=== PATIENT | male | born 1985 | race Two or more races ===

== ENCOUNTER 2019-10-26 22:50 | Emergency (ER) | payer OTHER, SELFPAY ==
--- NOTE | ~2019-10-26 | XR_ITS ---
EXAMINATION: XR lumbar spine 2-3V DATE: 10/27/2019 01:02 INDICATION: Midline low back pain. TECHNIQUE: Anteroposterior and lateral views of the lumbar spine, and cone-down lateral view of the l umbosacral junction were obtained. COMPARISON: None. FINDINGS: 10 degrees lumbar dextroscoliosis. Straightening of the lumbar lordosis. Vertebral body hei ghts are normal. Minimal disc height loss at L4-L5. Sacrum and bilateral sacral iliac joints are norm al. Normal bowel gas pattern. Lung bases are clear. Heart size is normal. IMPRESSION: 1. Mild lumbar dextroscoliosis with minimal spondylosis at L4-L5. Reviewed, dictated and finalized at location A.
[2019-10-26 22:52] VITALS: BP 110/75; PULSE 81; RESP 16; TEMP 36.6; O2SAT 100
[2019-10-27] MEDS: MORPHINE SULFATE 4 MG/ML INJ IV PUSH (00:40)
--- NOTE | 2019-10-27 01:45 | ED.BACK ---
HPI - Back Pain/Injury General Chief Complaint: Back Pain/Injury Stated Complaint: back pain Time Seen by Provider: 10/27/19 00:14 History of Present Illness HPI Narrative: Patient is a 34-year-old male who presents the ER with back pain. Sudden onset pain at 7:30 AM yesterday when he was lifting a box that weighed 50 pounds. Pain radiates down the left leg. Worse with bending and moving. No numbness or tingling in the groin or inability to urinate/defecate. Has found no alleviating factors other than lying still. Does not think he has lower extremity numbness or tingling. Has not noticed any focal weakness in his leg or foot drop. Related Data Allergies Allergy/AdvReac Type Severity Reaction Status Date / Time Penicillins Allergy Fever Verified 10/27/19 00:06 Review of Systems Review of Systems: All systems reviewed & are unremarkable except as noted in HPI and below Constitutional: Constitutional: Denies chills, Denies fever(s) and Denies weakness Musculoskeletal: Musculoskeletal: Reports back pain, Denies arthralgias and Denies joint swelling Neurologic: Denies focal weakness and Denies numbness PMFSH Past Medical History Medical History (Updated 10/27/19 @ 03:47 by Ashwin Briceno MD) Pancreatitis Surgical History Surgical History (Updated 10/27/19 @ 03:40 by Ashwin Briceno MD) No pertinent past surgical history Social History Social History (Updated 10/27/19 @ 03:40 by Ashwin Briceno MD) Smoking status: Unknown if ever smoked Exam Narrative: Exam Narrative: GENERAL: Uncomfortable-appearing, well-nourished, and in no acute distress. HEAD: Normocephalic, atraumatic. CHEST: Clear to auscultation. No respiratory distress. HEART: Regular rate and rhythm. Normal peripheral pulses. EXTREMITIES: Strength exam of lower extremities limited due to pain however patient is moving himself in the bed and his pulled his knees up to a 90 degree angle at the knees and the hips into a position of comfort. He moves his toes and feet freely. : No perineal sensory loss to sharp touch. Rectal tone normal. SKIN: Warm, dry, no rash. NEURO: Sharp touch deficit circumferentially around the lower left leg beneath the knee and extending into the foot. There is also sharp touch decrease in the left lower extremity in the posterior thigh. These would indicate dermatomes L4-2 could be involved. Alert and oriented x3. Course Course Emergency Course: I have contacted Dr. Peralta with spine surgery at [facility]. She reports that patient could be transferred to their hospital for an MRI to speed up the process of evaluating him but that this is not a time critical diagnosis and they are currently on time critical diversion. She reports given his symptoms that he may also follow-up in the spine clinic if he wishes and he can contact them for close follow-up. I have also contacted [facility] and spoke with Dr. Prieto with the spine team there. He also does not recommend emergent transfer as this is not cauda equina given the history and exam. He would recommend follow-up in spine clinic as well would also recommend a steroid Dosepak to help with patient's discomfort. I discussed with the patient the options that been presented by both spine teams. He would prefer to go home and rest and attempt to contact our clinics in the morning. We will start him on mild narcotic pain medication at home and also start him on a steroid Dosepak. He has been educated extensively on signs and symptoms that should prompt return to an ER and that he would likely benefit from promptly going to a tertiary care center should he require return visit. Vital Signs Vital signs: Vital Signs Temperature 98 F 10/26/19 22:52 Pulse Rate 81 10/26/19 22:52 Respiratory Rate 16 10/26/19 22:52 Blood Pressure 110/75 10/26/19 22:52 Pulse Oximetry 100 10/26/19 22:52 Temperature 98 F 10/26/19 22:52 Pulse Rate 81 10/26/19 22:52 R
[2019-10-27 04:11] VITALS: BP 123/76; PULSE 54; RESP 15; O2SAT 100
== END 2019-10-27 04:25 | disposition home or self-care (01) ==
PROVIDERS: Emergency Provider Emergency Medicine
DX: M54.16 Radiculopathy, lumbar region (principal)
CPT/HCPCS: 72100; 96374; 96375; 99284; A9270; J1170; J2270

== ENCOUNTER 2021-10-05 11:59 | Emergency (ER) | payer OTHER, SELFPAY ==
--- NOTE | ~2021-10-05 | XR_ITS ---
EXAMINATION: XR foot LT 2V INDICATION: Left foot pain, initial encounter TECHNIQUE: Two views of the left foot are obtained. COMPARISON: None available FINDINGS: There is an acute, traumatic, mildly comminuted fracture in the proximal neck of the first metatarsal. Given history of injury with an ax, this likely represents an open fracture. No additiona l fracture is identified. The joint spaces are normal. IMPRESSION: 1. Comminuted fracture in the proximal neck of the first metatarsal, likely open. Reviewed, dictated and finalized at location A. IMPRESSION: 1. Comminuted fracture in the proximal neck of the first metatarsal, likely ope n.
[2021-10-05 12:10] VITALS: BP 117/84; PULSE 102; RESP 28; TEMP 37.2; O2SAT 97
[2021-10-05] MEDS: HYDROmorphone HCL INJ (*CRX) 1 MG/ML SYR IV PUSH ×2 (12:54→14:17)
[2021-10-05] MEDS: LIDO 1%/EPINEPHRINE 1:100,000 20 ML VIAL 4 ML INFILTRATE (12:55)
[2021-10-05] MEDS: metroNIDAZOLE 500 MG/ISO 100ML 500 MG/100 ML BAG 100 MG IVPB (12:55)
[2021-10-05 12:56] LABS: Basophils Percent Auto 0.3 % (0.2-1.2); Eosinophils Absolute Auto 0.2 K/mm3 (0-0.3); Eosinophils Percent Auto 2.1 % (0-4.4); Hematocrit 42.9 % (42.0-52.0); Hemoglobin 14.6 g/dL (14.0-18.0); Immature Granulocyte Absolute 0.03 K/mm3 (0.00-0.031); Immature Granulocyte Percent A 0.3 % (0-0.5); Lymphocytes Absolute Auto 2.33 K/mm3 (0.9-3.2); Lymphocytes Percent Auto 27.1 % (18.3-44.2); Mean Corpuscular Hemoglobin 29.9 pg (26-34); Mean Corpuscular Volume 87.9 fl (80-100); Mean Platelet Volume 9.1 fl (7.4-10.4); Monocytes Absolute Auto 0.7 K/mm3 (0.1-0.6); Neutrophils Absolute Auto 5.3 K/mm3 (1.3-6.7); Neutrophils Percent Auto 62.2 % (45.5-73.1); Platelet Count Result 248 k/mm3 (150-375); Red Blood Count 4.88 M/mm3 (4.6-6.20); Red Cell Distribution Width 12.5 % (11.5-14.5); White Blood Count 8.6 K/mm3 (4.5-10.0)
[2021-10-05] MEDS: ceFAZolin 2 GM/D5W 50 ML 2 GM/50 ML BAG IVPB (12:56)
[2021-10-05 13:05] LABS: Anion Gap 4 mmol/L (8-16); Blood Urea Nitrogen 6 mg/dL (9-20); Carbon Dioxide 29 mmol/L (22-30); Chloride 103 mmol/L (98-107); Estimated CRCL calculation 92 ml/min; Estimated Glomerular Filt Rate > 60; Glucose 96 mg/dL (65-110); Potassium 3.6 mmol/L (3.4-5.0); Sodium 136 mmol/L (137-145)
--- NOTE | 2021-10-05 13:35 | ED.GENADULT ---
HPI - General Adult General Chief complaint: Extremity Injury, Lower Stated complaint: Foot injury Time Seen by Provider: 10/05/21 12:10 History of Present Illness HPI narrative: Patient is a 36-year-old male who presents the ER with foot injury occurring just prior to arrival. Patient was chopping down a tree with an ax when he struck his left foot with the ax. Had sudden onset pain and has a large laceration. Tetanus shot updated 4 years ago. Endorses numbness of his left great toe. Cannot bear weight due to pain. No additional injury. Related Data Allergies Allergy/AdvReac Type Severity Reaction Status Date / Time Penicillins Allergy Mild Fever Verified 10/05/21 12:41 Review of Systems Review of Systems: All systems reviewed & are unremarkable except as noted in HPI and below Musculoskeletal: Comments: Foot pain and laceration left side Integumentary/Breasts: Skin/Breast: Denies erythema, Denies rash and Denies skin ulcer Comments: foot laceration Neurologic: Denies headache(s), Denies focal weakness and Reports numbness (left great toe) PMFSH Past Medical History Medical History Esophagitis Esophagitis determined by biopsy Inguinal hernia Surgical History Surgical History Hx of esophagogastroduodenoscopy Family History Family History Father , 76 yrs old Lung cancer Social History Social History (Updated 03/13/21 @ 08:57 by Alexandra Nick) Social History: Years smoked: 3 Smoking status: Current every day smoker Tobacco type: e-cigarettes/vaping Second hand tobacco smoke exposure: Yes Alcohol intake: current Alcohol use details: Occasionally Substance use: never Substance use type: does not use Gender identity (if verbalized by the patient): Male Sexual Orientation (if Verbalized by the Patient): Straight or Heterosexual Exam Narrative: GENERAL: Well-appearing, well-nourished, and in no acute distress. HEAD: Normocephalic, atraumatic. CHEST: Clear to auscultation. No respiratory distress. HEART: Regular rate and rhythm. Normal peripheral pulses. EXTREMITIES: Focused exam the left foot reveals a 4 cm x 1.75 cm gaping laceration to the dorsum of the foot. Foot is tender to palpation along medial aspect. There is decreased sharp touch over the great toe but the other toes are spared. No decreased sensation over the dorsum of the foot. Laceration has small amount of contaminant wound visualized in a bloodless plane. There does appear to be full laceration of small muscles of the foot. Patient did not tolerate exploration down to bone. SKIN: Warm, dry, no rash. Laceration as noted above. NEURO: Decreased sensation left great toe. Alert and oriented x3. PSYCH: Normal mood and affect. Course Course Emergency Course: Accepted by Dr. Guevara at [facility] ER. Pt has received Ancef 2g and Metronidazole 500mg. Also, dilaudid 2mg. Vital Signs Vital signs: Vital Signs Temperature 98.9 F 10/05/21 12:10 Pulse Rate 102 H 10/05/21 12:10 Respiratory Rate 28 H 10/05/21 12:10 Blood Pressure 117/84 10/05/21 12:10 Pulse Oximetry 97 10/05/21 12:10 Oxygen Delivery Room Air 10/05/21 12:10 Temperature 98.9 F 10/05/21 12:10 Pulse Rate 90 10/05/21 13:40 Respiratory Rate 16 10/05/21 13:40 Blood Pressure 136/90 10/05/21 13:40 Pulse Oximetry 98 10/05/21 13:40 Oxygen Delivery Room Air 10/05/21 12:10 Medical Decision Making Vital Signs Vital Signs: Vital Signs Temperature 98.9 F 10/05/21 12:10 Pulse Rate 102 H 10/05/21 12:10 Respiratory Rate 28 H 10/05/21 12:10 Blood Pressure 117/84 10/05/21 12:10 Pulse Oximetry 97 10/05/21 12:10 Oxygen Delivery Room Air 10/05/21 12:10 Temperature 98.9 F 10/05/21 12:10 Pulse Rate 90 10/05/21 13:
[2021-10-05 13:40] VITALS: BP 136/90; PULSE 90; RESP 16; O2SAT 98
[2021-10-05 14:25] VITALS: BP 144/76; PULSE 92; RESP 18; O2SAT 98
[2021-10-05 15:13] VITALS: BP 115/81; PULSE 82; RESP 16; O2SAT 97
== END 2021-10-05 15:13 | disposition short-term general hospital (02) ==
PROVIDERS: Emergency Provider Emergency Medicine; PCP Family Medicine
DX: S92.312B Displaced fracture of first metatarsal bone, left foot, initial encounter for open fracture (principal); K20.90 Esophagitis, unspecified without bleeding; F17.290 Nicotine dependence, other tobacco product, uncomplicated; W27.0XXA Contact with workbench tool, initial encounter
CPT/HCPCS: 36415; 73620; 80048; 85025; 96365; 96367; 96375; 96376; 99285; J0690; J1170

== ENCOUNTER 2021-12-24 17:35 | Emergency (ER) | payer OTHER, SELFPAY ==
[2021-12-24] VITALS (27 sets, daily range): BP systolic 99–145; BP diastolic 51–87; PULSE 80–115; RESP 11–31; TEMP 36.1; O2SAT 96–100
[2021-12-24 18:08] LABS: Basophils Absolute Auto 0.1 K/mm3 (0.0-0.1); Basophils Percent Auto 0.4 % (0.2-1.2); Eosinophils Percent Auto 0.1 % (0-4.4); Hematocrit 51.3 % (42.0-52.0); Hemoglobin 17.2 g/dL (14.0-18.0); Immature Granulocyte Absolute 0.08 K/mm3 (0.00-0.031); Immature Granulocyte Percent A 0.5 % (0-0.5); Lymphocytes Absolute Auto 2.17 K/mm3 (0.9-3.2); Lymphocytes Percent Auto 12.8 % (18.3-44.2); Mean Corpuscular HGB Conc 33.5 g/dl (32-36); Mean Corpuscular Hemoglobin 29.3 pg (26-34); Mean Corpuscular Volume 87.4 fl (80-100); Mean Platelet Volume 9.6 fl (7.4-10.4); Monocytes Absolute Auto 1.3 K/mm3 (0.1-0.6); Monocytes Percent Auto 7.6 % (2.6-8.5); Neutrophils Absolute Auto 13.3 K/mm3 (1.3-6.7); Neutrophils Percent Auto 78.6 % (45.5-73.1); Platelet Count Result 325 k/mm3 (150-375); Red Blood Count 5.87 M/mm3 (4.6-6.20); Red Cell Distribution Width 12.7 % (11.5-14.5); White Blood Count 16.9 K/mm3 (4.5-10.0)
[2021-12-24 18:18] LABS: Alanine Aminotransferase 21 U/L (6-50); Alkaline Phosphatase 131 U/L (38-126); Anion Gap 17 mmol/L (8-16); Aspartate Amino Transferase 40 U/L (17-59); Blood Urea Nitrogen 21 mg/dL (9-20); Calcium 10.1 mg/dL (8.4-10.2); Carbon Dioxide 26 mmol/L (22-30); Chloride 91 mmol/L (98-107); Estimated CRCL calculation 41 ml/min; Estimated Glomerular Filt Rate 36; Glucose 121 mg/dL (65-110); Potassium 4.5 mmol/L (3.4-5.0); Sodium 134 mmol/L (137-145)
[2021-12-24] MEDS: diphenhydrAMINE HCl INJ 50 MG/ML VIAL 25 MG IV PUSH (18:51)
[2021-12-24] MEDS: methylPREDNISolone SOD SUCC 125 MG VIAL IV PUSH (18:51)
[2021-12-24] MEDS: SODIUM CHLORIDE 0.9% IV 1,000 ML 999 ML IV CONT ×2 (18:51)
[2021-12-24] MEDS: ONDANSETRON INJ 4 MG/2 ML VIAL IV PUSH (18:51)
[2021-12-24] MEDS: FAMOTIDINE 20 MG/2 ML VIAL IV PUSH (18:52)
--- NOTE | 2021-12-24 18:56 | ED.NAVMDI ---
HPI - Nausea/Vomiting/Diarrhea General Chief complaint: Nausea/Vomiting/Diarrhea Stated complaint: N/V, stung by wasp Time Seen by Provider: 12/24/21 18:04 Source: patient Mode of arrival: ambulatory History of Present Illness HPI Narrative: 36-year-old male presents today with complaints of nausea vomiting that started a couple hours ago and muscle cramps. Patient states that he got stung by a couple wasps today give himself the EpiPen then went home and laid down. Patient denies taking any other medications at that time. Patient's significant other tried giving him Benadryl but he had been vomiting already. Patient denies shortness of breath, chest pain, difficulty swallowing at this time. Patient is currently having muscle spasms to legs and arms and chest intermittently. Related Data Allergies Allergy/AdvReac Type Severity Reaction Status Date / Time Penicillins Allergy Mild Fever Verified 10/24/21 10:23 Review of Systems Review of Systems: CONSTITUTIONAL: Denies fever, chills, or sweats. EYES: Denies visual changes, redness, or discharge. ENT: Denies rhinorrhea, congestion, sore throat, or otalgia. CARDIOVASCULAR: Denies chest pain, palpitations, or edema. RESPIRATORY: Denies cough or dyspnea. GASTROINTESTINAL: Denies abdominal pain, nausea, vomiting, or diarrhea. GENITOURINARY: Denies dysuria or hematuria. SKIN: Right arm with minimal swelling and erythema secondary to wasp sting. MUSCULOSKELETAL: Muscle spasms intermittently to legs, arms, chest. Denies back pain, joint pain, or myalgia. NEUROLOGIC: Denies headache, numbness, dizziness, or weakness. PSYCHIATRIC: Denies anxiety or depression. [facility] Past Medical History Medical History Esophagitis Esophagitis determined by biopsy Inguinal hernia Surgical History Surgical History Hx of esophagogastroduodenoscopy Family History Family History Father , 76 yrs old Lung cancer Social History Social History Social History: Years smoked: 3 Smoking status: Current every day smoker Tobacco type: e-cigarettes/vaping Second hand tobacco smoke exposure: Yes Alcohol intake: current Alcohol use details: Occasionally Substance use: never Substance use type: does not use Gender identity (if verbalized by the patient): Male Sexual Orientation (if Verbalized by the Patient): Straight or Heterosexual Exam Narrative: GENERAL: Well-appearing, well-nourished, and in moderate distress due to muscle cramps. HEAD: Normocephalic, atraumatic. EYES: PERRLA and EOMI. ENT: Nares clear, no rhinorrhea or epistaxis. Mucous membranes moist. Oropharynx without tonsillar hypertrophy exudate or other lesions. Bilateral TMs pearly mace nonbulging NECK: Supple. No adenopathy or masses. No carotid bruits or JVD CHEST: Clear to auscultation. No respiratory distress. No wheezes rales or rhonchi HEART: Tachycardia regular rhythm. No murmur heard. Normal peripheral pulses. ABDOMEN: Soft, nontender, nondistended, normal active bowel sounds. EXTREMITIES: Normal range of motion. No edema. Muscle spasms noted. SKIN: Warm, dry, no rash. NEURO: No focal deficits. Alert and oriented x3. PSYCH: Normal mood and affect. fidgeting Course Course Emergency Course: Patient with improvement after IV fluids and medications. Patient states he feels like his normal self. Reviewed labs with patient. Patient be discharged home push fluids, prednisone, Pepcid, Claritin. Patient aware to return with any new or worsening symptoms. Plan follow-up with primary for repeat labs if needed. Vital Signs Vital signs: Vital Signs Temperature 36.1 C L 12/24/21 17:44 Pulse Rate 115 H 12/24/21 17:44 Respiratory Rate 18 12/24/21 17:44 Blood Pressure
[2021-12-24 21:07] LABS: Creatine Kinase 597 U/L (55-170)
== END 2021-12-24 22:50 | disposition home or self-care (01) ==
PROVIDERS: Emergency Medicine; Emergency Provider Nurse Practitioner Family; PCP Family Medicine
DX: T63.461A Toxic effect of venom of wasps, accidental (unintentional), initial encounter (principal); R11.2 Nausea with vomiting, unspecified; K20.90 Esophagitis, unspecified without bleeding; F17.290 Nicotine dependence, other tobacco product, uncomplicated
CPT/HCPCS: 36415; 80053; 82550; 85025; 96361; 96374; 96375; 99284; J1200; J2405; J2930; J7030

== ENCOUNTER 2021-12-31 15:50 | Emergency (ER) | payer OTHER, SELFPAY ==
[2021-12-31 15:53] VITALS: BP 138/97; PULSE 113; RESP 20; TEMP 36.3; O2SAT 100
[2021-12-31 16:02] VITALS: BP 153/101; PULSE 105; RESP 21; O2SAT 100
[2021-12-31] MEDS: methylPREDNISolone SOD SUCC 125 MG VIAL IV PUSH (16:04)
[2021-12-31] MEDS: FAMOTIDINE 20 MG/2 ML VIAL IV PUSH (16:04)
[2021-12-31] MEDS: diphenhydrAMINE HCl INJ 50 MG/ML VIAL IV PUSH (16:04)
--- NOTE | 2021-12-31 16:08 | ED.ALLEREA ---
HPI - Allergic Reaction General Chief complaint: Allergic Reaction Stated complaint: allergic reaction Time Seen by Provider: 12/31/21 15:57 History of Present Illness HPI narrative: Pt stung by wasp in forearm. Pt has a history of sthroat swelling and trouble breathing with stings so gave himself shot with epipen and came to ER. Right now only feels pain at sting site. Related Data Allergies Allergy/AdvReac Type Severity Reaction Status Date / Time Penicillins Allergy Mild Fever Verified 12/30/21 16:27 Review of Systems Review of Systems: All systems reviewed & are unremarkable except as noted in HPI and below PMFSH Past Medical History Medical History Esophagitis Esophagitis determined by biopsy Inguinal hernia Surgical History Surgical History Hx of esophagogastroduodenoscopy Family History Family History Father , 76 yrs old Lung cancer Social History Social History (Updated 12/30/21 @ 16:28 by Felicia Lobato) Social History: Years smoked: 3 Smoking status: Current every day smoker Tobacco type: e-cigarettes/vaping Second hand tobacco smoke exposure: Yes Alcohol intake: current Alcohol use details: Occasionally Substance use: never Substance use type: does not use Gender identity (if verbalized by the patient): Male Sexual Orientation (if Verbalized by the Patient): Straight or Heterosexual Exam Const: General: healthy appearing and no acute distress Orientation/consciousness: patient oriented x3 Limitations: no limitations Eyes: Conjunctivae: conjunctivae normal Resp: Effort & Inspection: normal respiratory effort Auscultation: clear to auscultation bilaterally Cardio: Rate: regular rate Rhythm: regular rhythm GI: GI Palp: Yes Soft to palpation Auscultation: normal bowel sounds Skin: Other: small area of erythema around sting site in forearm Neuro: General: patient oriented x3, moves all extremities and no focal motor deficits Speech: normal speech Extrem: General: normal to inspection and no clubbing, cyanosis or edema Psych: Mental Status: mental status grossly normal Affect: normal affect Attitude: cooperative Course Vital Signs Vital signs: Vital Signs Temperature 97.3 F L 12/31/21 15:53 Pulse Rate 113 H 12/31/21 15:53 Respiratory Rate 20 12/31/21 15:53 Blood Pressure 138/97 H 12/31/21 15:53 Pulse Oximetry 100 12/31/21 15:53 Temperature 97.3 F L 12/31/21 15:53 Pulse Rate 90 12/31/21 17:06 Respiratory Rate 16 12/31/21 17:06 Blood Pressure 129/98 H 12/31/21 17:06 Pulse Oximetry 99 12/31/21 17:06 Discharge Plan Discharge Clinical Impression: Allergic reaction Patient Disposition: Home, Self-Care Condition: Improved Instructions: Antibiotic Form, Insect Bite or Sting (ED), Anaphylaxis (ED) Prescriptions: New prednisone 50 mg tablet 50 mg PO DAILY Qty: 5 0RF No Action gabapentin 600 mg tablet 600 mg PO TID Qty: 270 2RF lansoprazole [Prevacid] 30 mg capsule,delayed release(DR/EC) 30 mg PO DAILY Qty: 90 1RF famotidine [Pepcid] 20 mg tablet 20 mg PO DAILY Qty: 30 0RF loratadine [Claritin] 10 mg tablet 10 mg PO DAILY Qty: 30 0RF amitriptyline 25 mg tablet 50 mg .ROUTE .COMPLEX Qty: 180 2RF Rx Instructions: 50 mg; Take 2 tabs PO once a day for 90 days epinephrine [EpiPen] 0.3 mg/0.3 mL auto-injector 0.3 mg IM ONCE Qty: 1 0RF Rx Instructions: as a single dose; may repeat once Follow-up/Referrals: Roxanna Harvey MD [Primary Care Provider] -
[2021-12-31 17:06] VITALS: BP 129/98; PULSE 90; RESP 16; O2SAT 99
== END 2021-12-31 17:18 | disposition home or self-care (01) ==
PROVIDERS: Emergency Provider Emergency Medicine; PCP Family Medicine
DX: T63.461A Toxic effect of venom of wasps, accidental (unintentional), initial encounter (principal); R06.9 Unspecified abnormalities of breathing; K20.90 Esophagitis, unspecified without bleeding; F17.290 Nicotine dependence, other tobacco product, uncomplicated
CPT/HCPCS: 96374; 96375; 99284; J1200; J2930

== ENCOUNTER 2024-10-30 13:59 | Outpatient (CLI) | payer OTHER, SELFPAY ==
--- OUTSIDE RECORDS SUMMARY | 2024-10-30 14:25 | XMS_ITS | Encounter Summary ---
Author Organization [facility] Healthcare Address [address] [place] [address] Care Team Providers Care Director Of Academic Name Role Phone No, Physician Primary Care Provider [phone] Roxanna Harvey MD Primary Care Provider Encounter Details Date Type Department Care Team (Late st Contact Info) Description 11/15/2019 Telephone [facility] [place] [address] Nolvia Johns, [facility] [address] [facility] [address] [place] [address] Social History Tobacco Use Types Packs/Day Years Used Date Smoking Tobacco: Every Day Vaping Smokeless Tobacco: Never Sex and Gender Information Value Date Recorded Sex Assigned at Not on file Legal Sex Male 11:16 PM CDT Gender Identity Not on file Sexual Orientation Not on file documented as of this encounter Plan of Treatment Not on file documented as of this encounter Visit Diagnoses Not on filedocumented in this encounter Care Teams Director Of Academic Relationship Specialty Start Date End Date No, Physician PCP - General 10/27/19 10/04/21 Roxanna Harvey MD [address] [place] [address] PCP - General Family Medicine 10/05/21 documented as of this encounter
--- OUTSIDE RECORDS SUMMARY | 2024-10-30 14:25 | XMS_ITS | Referral Summary ---
Author Organization [address] Address [address] [place] [address] Care Team Providers Care Finishing Frame Runner Name Role Phone Roxanna Harvey MD Primary Care Provider Allergies Active Allergy Reactions Criticality Noted Date Comments Penicillins Rash Medium 11/14/2019 Medications gabapentin (NEURONTIN) 300 mg capsuleIndications :Neuropathic Pain Take 600mg in the AM, 300mg in the afternoon and 600mg at Bedtime. 150 capsule 1 02/16/20 20 Active ondansetron ODT (ZOFRAN-ODT) 4 mg disintegrating tabletIndications: nausea and vomiting Take 1 tablet (4 mg total) by mouth every 6 (six) hours as needed for nausea or vomiting 20 tablet 10/07/19 22 Active Additional Information Patient not taking.Reported on 02/09/2022 Active Problems Problem Noted Date Diagnosed Date Open displaced fracture of f irst metatarsal bone of left foot 10/05/2021 Overview (10/05/2021): Added automatically from request for surgery [id number] Foot fracture, left, open, initial encounter 08/2021 DDD (degenerative disc disease), lumbar 02/16/20 20 Disc displacement, lumbar 02/16/2020 Chronic pain of right inguinal region 04/01/2017 Social History Tobacco Use Types Packs/Day Years Used Date Smoking Tobacco: Every Day Vaping Smokeless Tobacco: Never Alcohol Use Standard Drinks/Week Comments Not Currently 0 (1 standard drink = 0.6 oz pur e alcohol) Sex and Gender Information Value Date Recorded Sex Assigned at Not on file Legal Sex Male 11:16 PM CDT Gender Identity Not on file Sexual Orientation Not on file Last Filed Vital Signs Vital Sign Reading Time Taken Comments Blood Pressure 129/72 10/06/2021 3:34 PM CDT Pulse 77 10/06/2021 3:34 PM CDT Temperature 36.8 C (98.2 F) 10/06/2021 3:34 PM CDT Respiratory Rate 16 10/06/2021 3:34 PM CDT Oxygen Saturation 100% 10/06/2021 3:34 PM CDT Inhaled Oxygen Concentration - - Weight 64.9 kg (143 lb) 10/06/2021 2:50 AM CDT Height 175.3 cm (5' 9) 10/05/2021 4:37 PM CDT Body Mass Index 21.12 10/05/2021 4:37 PM CDT Plan of Treatment Not on file Medical Devices Implanted Type Area Senior Manager Device Identifier Shelf Expiration Date Model / Serial / Lot Synthes 2.4mm 18mm Self Tap Stardrive Cortex T8 Screw Bone 201.768 - [id number] Implanted:Qty: 3 on 10/05/2021 by Adrien Yoder MD at [facility] Left: Foot Synthes I 201.768 / / Synthes Lcp Pro-Maxwell 44mm 5 Hole Low Profile Cut To Length Plate Bone 247.375 - [id number] Implanted:Qty: 1 on 10/05/2021 by Adrien Yoder MD at [facility] Left: Foot Synthes I 247.375 / / Synthes 2.4mm 22mm Self Tap Stardrive Cortex T8 Screw Bone 201.772 - [id number] Implanted:Qty: 1 on 10/05/2021 by Adrien Yoder MD at [facility] Left: Foot Synthes I 201.772 / / Synthes 2.4mm 4mm 26mm Self Tap Self Retain Stardrive Low Profile Cortex 201.776 - [id number] Implanted:Qty: 1 on 10/05/2021 by Adrien Yoder MD at [facility] Left: Foot Synthes I 201.776 / / Explanted Type Area Senior Manager Device Identifier Shelf Expiration Date Model / Serial / Lot Synthes 2.4mm 4mm 28mm Self Tap Self Retain Stardrive Low Profile Cortex 201.778 - [id number] Explanted:Qty: 1 on 10/05/2021 by Adrien Yoder MD at [facility] Left: Foot Synthes I 201.778 / / Insurance [facility] [employer] OPEN ACCESS [employer] OPEN ACCESS [employer] PPO [place] [address] [place], [place] [id number] [address] [employer] OPEN ACCESS Advance Directives For more information, please contact: [phone] * Full Code (Latest Code Status on File) Date Activated Date Inactivated Comments 10/06/2021 2:49 AM 10/06/2021 11:27 PM * Full Code Date Activated Date Inactivated Comments 10/06/2021 2:49 AM 10/06/2021 2:49 AM Care Teams Finishing Frame Runner Relationship Specialty Start Date End Date Roxanna Harvey MD [address] [facility] [address] [place] [address] PCP - General Family Medicine 10/05/21
--- OUTSIDE RECORDS SUMMARY | 2024-10-30 14:25 | XMS_ITS | Clinical Summary ---
Author Organization [address] Address [address] [place] [address] Care Team Providers Care Research Scientist Name Role Phone Roxanna Harvey MD Primary [...] (10/05/2021): Added automatically from request for surgery [id number] Foot fracture, left, open, initial encounter 08/2021 DDD (degenerative disc disease), lumbar 02/16/20 20 Disc displacement, lumbar 02/16/2020 Chronic pain of right inguinal region 04/01/2017 Surgical History Surgery Date Site/Laterality Comments HERNIA REPAIR Social History Tobacco Use Types Packs/Day Years Used Date Smoking Tobacco: Every Day Vaping Smokeless Tobacco: Never Alcohol Use Standard Drinks/Week Comments Not Currently 0 (1 standard drink = 0.6 oz pur e alcohol) Sex and Gender Information Value Date Recorded Sex Assigned at Not on file Legal Sex Male 11:16 PM CDT Gender Identity Not on file Sexual Orientation Not on file Obstetrics History Last Filed Vital Signs Vital Sign Reading [...] 10/05/2021 4:37 PM CDT Plan of Treatment Health Maintenance Due Date Last Done Comments Depression Screening 1986 Hepatitis C Screening 1986 Varicella Vaccines (1 of 2 - 13+ 2-dose series) 1999 Regular Well Visit/Exam 18-64 2004 Pneumococcal vaccine <65 (1 of 2 - PCV) 2005 DTaP/Tdap/Td Vaccine (7 - Td or Tdap) 12/24/2020 12/24/2010, 07/17/1991, 09/05/1987, Additional history exists Covid-19 Vaccine ( season) 2024 12/28/2020, 12/06/2020 Influenza Vaccine (Season Ended) 2025 Hepatitis B Screening Completed 08/25/1996 , 04/07/1996, 03/09/1996 HPV Vaccines Aged Out No longer eligi ble based on patient's age to complete this topic Medical Devices Implanted Type Area Automatic Furnace Operator Device Identifier Shelf Expiration Date Model / Serial / Lot Synthes 2.4mm 18mm Self Tap Stardrive Cortex T8 Screw Bone 201.665 - [id number] Implanted:Qty: 3 on 10/05/2021 by Adrien Yoder MD at [facility] Left: Foot Synthes I 201.768 / / Synthes Lcp Pro-Maxwell 44mm 5 Hole Low Profile Cut To Length Plate Bone 247.375 - [id number] Implanted:Qty: 1 on 10/05/2021 by Adrien Yoder MD at [facility] Left: Foot Synthes I 247.375 / / Synthes 2.4mm 22mm Self Tap Stardrive Cortex T8 Screw Bone 201.772 - [id number] Implanted:Qty: 1 on 10/05/2021 by Adrien Yoder MD at [facility] Left: Foot Synthes I 201.772 / / Synthes 2.4mm 4mm 26mm Self Tap Self Retain Stardrive Low Profile Cortex 201.776 - [id number] Implanted:Qty: 1 on 10/05/2021 by Adrien Yoder MD at [facility] Left: Foot Synthes I 201.776 / / Explanted Type Area Automatic Furnace Operator Device Identifier Shelf Expiration Date Model / Serial / Lot Synthes 2.4mm 4mm 28mm Self Tap Self Retain Stardrive Low Profile Cortex 201.778 - [id number] Explanted:Qty: 1 on 10/05/2021 by Adrien Yoder MD at [facility] Left: Foot Synthes I 201.778 / / Insurance [facility] HMO/PPO Address: [address] [address] HEALTHLINK OPEN ACCESS HEALTHLINK OPEN ACCESS HEALTHLINK PPO POS [facility] HEALTHLINK OPEN ACCESS Advance Directives For more information, please contact: [phone] * Full Code (Latest Code Status on File) Date Activated Date Inactivated Comments 10/06/2021 2:49 AM 10/06/2021 11:27 PM * Full Code Date Activated Date Inactivated Comments 10/06/2021 2:49 AM 10/06/2021 2:49 AM Care Teams Research Scientist Relationship Specialty Start Date End Date Roxanna Harvey MD [address] [facility] [address] [place] [address] PCP - General Family Medicine 10/05/21
[2024-10-30 14:31] LABS: Basophils Percent Auto 0.6 % (0.2-1.2); Eosinophils Absolute Auto 0.1 K/mm3 (0-0.3); Eosinophils Percent Auto 1.6 % (0-4.4); Hematocrit 46.7 % (42.0-52.0); Hemoglobin 15.5 g/dL (14.0-18.0); Immature Granulocyte Absolute 0.01 K/mm3 (0.00-0.031); Immature Granulocyte Percent A 0.2 % (0-0.5); Lymphocytes Absolute Auto 2.08 K/mm3 (0.9-3.2); Lymphocytes Percent Auto 32.7 % (18.3-44.2); Mean Corpuscular HGB Conc 33.2 g/dl (32-36); Mean Corpuscular Hemoglobin 29.2 pg (26-34); Mean Corpuscular Volume 87.9 fl (80-100); Mean Platelet Volume 9.6 fl (7.4-10.4); Monocytes Absolute Auto 0.9 K/mm3 (0.1-0.6); Monocytes Percent Auto 13.8 % (2.6-8.5); Neutrophils Absolute Auto 3.3 K/mm3 (1.3-6.7); Neutrophils Percent Auto 51.1 % (45.5-73.1); Platelet Count Result 279 k/mm3 (150-375); Red Blood Count 5.31 M/mm3 (4.6-6.20); Red Cell Distribution Width 12.3 % (11.5-14.5); White Blood Count 6.4 K/mm3 (4.5-10.0)
[2024-10-30 14:44] LABS: Alanine Aminotransferase 38 U/L (6-50); Albumin Level 4.9 g/dL (3.5-5.1); Alkaline Phosphatase 75 U/L (38-126); Amylase 169 U/L (30-110); Anion Gap 13 mmol/L (4-12); Aspartate Amino Transferase 45 U/L (17-59); Bilirubin,Total 0.9 mg/dL (0.2-1.3); Blood Urea Nitrogen 25 mg/dL (9-20); Calcium 9.2 mg/dL (8.4-10.2); Carbon Dioxide 25 mmol/L (22-30); Chloride 100 mmol/L (98-107); Estimated Glomerular Filt Rate 36; Glucose 115 mg/dL (65-110); Lipase 118 U/L (23-300); Potassium 3.7 mmol/L (3.4-5.0); Sodium 138 mmol/L (137-145); Total Protein 8.5 g/dL (6.3-8.2)
[2024-10-30 14:53] LABS: Add Urine Microscopic? YES; Appearance Urine Cloudy (Clear); Bacteria Urine None Seen /hpf; Bilirubin Urine Negative (Negative); Blood Urine Negative (Negative); Color Urine Yellow (Yellow); Glucose Urine UA Negative (Negative); Hyaline Casts Urine Present /lpf; Ketones Urine Trace mg/dL (Negative); Leukocyte Esterase Ur Negative LEU/UL (Negative); Nitrate Urine Negative (Negative); Protein Urine Trace mg/dL (Negative); RBC Urine 0-2 /hpf (0-2); Specific Grav Ur 1.018 (1.001-1.035); Squamous Epithelial Cell Urine None Seen /hpf (Few); Urobilinogen Urine 0.2 mg/dL (<2.0); WBC Urine 0-5 /hpf (0-3); pH Urine 5.5 (5.0-9.0)
== END 2024-10-30 14:00 | disposition home or self-care (01) ==
PROVIDERS: PCP Family Medicine; Visit Provider Family Medicine
DX: R10.9 Unspecified abdominal pain (principal); R31.9 Hematuria, unspecified
CPT/HCPCS: 36415; 80053; 81001; 82150; 83690; 85025

== ENCOUNTER 2024-10-31 12:38 | Outpatient (CLI) | payer OTHER, SELFPAY ==
--- NOTE | ~2024-10-31 | CT_ITS ---
CLINICAL INDICATION: Right upper abdominal pain with new onset uremia. COMPARISON: None. TECHNIQUE: Multiple contiguous axial images of the abdomen and pelvis were performed without the admi nistration of intravenous contrast The dose-length product (DLP) was 326.45 mGy-cm. Automated exposure control and iterative reconstruction technique were employed. FINDINGS/OBSERVATIONS: Visualized lower thorax: The bilateral lung bases are clear. The heart is of normal size, without pericardial effusion. Small hiatal hernia is present. Liver: The liver demonstrates homogeneous attenuation and is not enlarged. Gallbladder and biliary system: The gallbladder is only minimally distended, and otherwise unremarkable. Pancreas: Limited evaluation of the pancreas secondary to the lack of intravenous contrast. Spleen: The spleen demonstrates homogeneous attenuation and is not enlarged. Kidneys: The bilateral kidneys are unremarkable, without hydronephrosis or renal calculi. Adrenal glands: Unremarkable. Gastrointestinal tract: Fecal stasis within the colon. Appendix: The air-filled appendix is of normal caliber (axial series, images 77 through 107) Vasculature: Unremarkable. No calcified atherosclerotic disease at the origins of the bilateral renal arteries. The bilateral renal arteries are unremarkable in contour and size. Lymph nodes: Limited evaluation without intravenous contrast. Pelvic structures: The bladder is only minimally distended, and otherwise unremarkable. The prostate gland is not enlarged. Body wall and musculoskeletal: Small fat-containing left inguinal hernia. Fixation hardware at the level of L5/S1. No significant degenerative disease is otherwise identified. IMPRESSION: No obstructive uropathy. No cross-sectional imaging evidence to suggest an etiology for patient's elevated creatinine, as deta iled above. Reviewed, dictated and finalized at location A. IMPRESSION: No obstructive uropathy. No cross-sectional imaging evidence to suggest an etiology for patient's elevat ed creatinine, as detailed above.
--- OUTSIDE RECORDS SUMMARY | 2024-10-31 12:50 | XMS_ITS | Clinical Summary ---
Author Organization [address] Address [address] [place] [address] Care Team Providers Care Supervisor Concrete Stone Finishing Name Role Phone Roxanna Harvey MD Primary [...] (10/05/2021): Added automatically from request for surgery [id number] Foot fracture, left, open, initial encounter 08/2021 [...] this topic Medical Devices Implanted Type Area Production Line Welder Device Identifier Shelf Expiration Date Model / Serial / Lot Synthes 2.4mm 18mm Self Tap Stardrive Cortex T8 Screw Bone 201.191 - [id number] Implanted:Qty: 3 on 10/05/2021 by Adrien Yoder MD at [facility] Left: Foot Synthes I 201.768 / / Synthes Lcp Pro-Maxwell 44mm 5 Hole Low Profile Cut To Length Plate Bone 247.375 - [id number] Implanted:Qty: 1 on 10/05/2021 by Adrien Yoder MD at [facility] Left: Foot Synthes I 247.375 / / Synthes 2.4mm 22mm Self Tap Stardrive Cortex T8 Screw Bone 201.772 - [id number] Implanted:Qty: 1 on 10/05/2021 by Adrien Yoder MD at [facility] Left: Foot Synthes I 201.772 / / Synthes 2.4mm 4mm 26mm Self Tap Self Retain Stardrive Low Profile Cortex 201.776 - [id number] Implanted:Qty: 1 on 10/05/2021 by Adrien Yoder MD at [facility] Left: Foot Synthes I 201.776 / / Explanted Type Area Production Line Welder Device Identifier Shelf Expiration Date Model / Serial / Lot Synthes 2.4mm 4mm 28mm Self Tap Self Retain Stardrive Low Profile Cortex 201.778 - [id number] Explanted:Qty: 1 on 10/05/2021 by Adrien Yoder MD at [facility] Left: Foot Synthes I 201.778 / / Insurance [facility] HEALTHLINK OPEN ACCESS HEALTHLINK OPEN ACCESS HEALTHLINK PPO POS [facility] HEALTHLINK OPEN ACCESS Advance Directives For more information, please contact: [phone] * Full Code (Latest Code Status on File) Date Activated Date Inactivated Comments 10/06/2021 2:49 AM 10/06/2021 11:27 PM * Full Code Date Activated Date Inactivated Comments 10/06/2021 2:49 AM 10/06/2021 2:49 AM Care Teams Supervisor Concrete Stone Finishing Relationship Specialty Start Date End Date Roxanna Harvey MD [address] [facility] [address] [place] [address] PCP - General Family Medicine 10/05/21
--- OUTSIDE RECORDS SUMMARY | 2024-10-31 12:50 | XMS_ITS | Referral Summary ---
Author Organization [address] Address [address] [place] [address] Care Team Providers Care Deckhand Engineer Name Role Phone Roxanna Harvey MD Primary [...] (10/05/2021): Added automatically from request for surgery [id number] Foot fracture, left, open, initial encounter 08/2021 [...] on file Medical Devices Implanted Type Area Reservation Sales Agent Device Identifier Shelf Expiration Date Model / Serial / Lot Synthes 2.4mm 18mm Self Tap Stardrive Cortex T8 Screw Bone 201.768 - [id number] Implanted:Qty: 3 on 10/05/2021 by Adrien Yoder MD at [facility] Left: Foot Synthes I 201.768 / / Synthes Lcp Pro-Maxwell 44mm 5 Hole Low Profile Cut To Length Plate Bone 247.375 - [id number] Implanted:Qty: 1 on 10/05/2021 by Adrien Yoder MD at [facility] Left: Foot Synthes I 247.375 / / Synthes 2.4mm 22mm Self Tap Stardrive Cortex T8 Screw Bone 201.772 - [id number] Implanted:Qty: 1 on 10/05/2021 by Adrien Yoder MD at [facility] Left: Foot Synthes I 201.772 / / Synthes 2.4mm 4mm 26mm Self Tap Self Retain Stardrive Low Profile Cortex 201.776 - [id number] Implanted:Qty: 1 on 10/05/2021 by Adrien Yoder MD at [facility] Left: Foot Synthes I 201.776 / / Explanted Type Area Reservation Sales Agent Device Identifier Shelf Expiration Date Model / Serial / Lot Synthes 2.4mm 4mm 28mm Self Tap Self Retain Stardrive Low Profile Cortex 201.778 - [id number] Explanted:Qty: 1 on 10/05/2021 by Adrien Yoder MD at [facility] Left: Foot Synthes I 201.778 / / Insurance [facility] H[facility]PPO Address: [address] [address] [place] [address] [employer] OPEN ACCESS HEALTHLINK OPEN ACCESS HEALTHLINK PPO POS [address] [place], [place] [address]S [facility] [address] [employer] OPEN ACCESS Advance Directives For more information, please contact: [phone] * Full Code (Latest Code Status on File) Date Activated Date Inactivated Comments 10/06/2021 2:49 AM 10/06/2021 11:27 PM * Full Code Date Activated Date Inactivated Comments 10/06/2021 2:49 AM 10/06/2021 2:49 AM Care Teams Deckhand Engineer Relationship Specialty Start Date End Date Roxanna Harvey MD [address] [facility] [address] [place] [address] PCP - General Family Medicine 10/05/21
--- OUTSIDE RECORDS SUMMARY | 2024-10-31 12:50 | XMS_ITS | Encounter Summary ---
Author Organization [facility] Healthcare Address [address] [place] [address] Care Team Providers Care Local Bulk Driver Name Role Phone No, Physician Primary Care Provider [phone] Roxanna Harvey MD Primary Care Provider Encounter Details Date Type Department Care Team (Late st Contact Info) Description 11/15/2019 Telephone [facility] [place] [address] Nolvia Johns, [facility] [address] [facility] [address] [place] [address] Social History Tobacco Use Types Packs/Day Years [...] on filedocumented in this encounter Care Teams Local Bulk Driver Relationship Specialty Start Date End Date No, Physician PCP - General 10/27/19 10/04/21 Roxanna Harvey MD [address] [facility] [address] [place] [address] PCP - General Family Medicine 10/05/21 documented as of this encounter
== END 2024-10-31 12:39 | disposition home or self-care (01) ==
PROVIDERS: PCP Family Medicine; Visit Provider Family Medicine
DX: R79.89 Other specified abnormal findings of blood chemistry (principal)
CPT/HCPCS: 74176

== ENCOUNTER 2024-11-01 08:25 | Outpatient (CLI) | payer OTHER, SELFPAY ==
--- OUTSIDE RECORDS SUMMARY | 2024-11-01 08:28 | XMS_ITS | Referral Summary ---
Author Organization [address] Address [address] [place] [address] Care Team Providers Care Nursing Clerk Name Role Phone Roxanna Harvey MD Primary [...] (10/05/2021): Added automatically from request for surgery [id number] Foot fracture, left, open, initial encounter 08/2021 [...] on file Medical Devices Implanted Type Area Stock Or Delivery Clerk Device Identifier Shelf Expiration Date Model / Serial / Lot Synthes 2.4mm 18mm Self Tap Stardrive Cortex T8 Screw Bone 201.768 - [id number] Implanted:Qty: 3 on 10/05/2021 by Adrien Yoder MD at [facility] Left: Foot Synthes I 201.768 / / Synthes Lcp Pro-Maxwell 44mm 5 Hole Low Profile Cut To Length Plate Bone 247.375 - [id number] Implanted:Qty: 1 on 10/05/2021 by Adrien Yoder MD at [facility] Left: Foot Synthes I 247.375 / / Synthes 2.4mm 22mm Self Tap Stardrive Cortex T8 Screw Bone 201.772 - [id number] Implanted:Qty: 1 on 10/05/2021 by Adrien Yoder MD at [facility] Left: Foot Synthes I 201.772 / / Synthes 2.4mm 4mm 26mm Self Tap Self Retain Stardrive Low Profile Cortex 201.776 - [id number] Implanted:Qty: 1 on 10/05/2021 by Adrien Yoder MD at [facility] Left: Foot Synthes I 201.776 / / Explanted Type Area Stock Or Delivery Clerk Device Identifier Shelf Expiration Date Model / Serial / Lot Synthes 2.4mm 4mm 28mm Self Tap Self Retain Stardrive Low Profile Cortex 201.778 - [id number] Explanted:Qty: 1 on 10/05/2021 by Adrien Yoder MD at [facility] Left: Foot Synthes I 201.778 / / Insurance [facility] [employer] OPEN ACCESS HEALTHLINK OPEN ACCESS HEALTHLINK [place]PO [place] [address] [place], [place] [address] [place] [address] [employer] OPEN ACCESS Advance Directives For more information, please contact: [phone] * Full Code (Latest Code Status on File) Date Activated Date Inactivated Comments 10/06/2021 2:49 AM 10/06/2021 11:27 PM * Full Code Date Activated Date Inactivated Comments 10/06/2021 2:49 AM 10/06/2021 2:49 AM Care Teams Nursing Clerk Relationship Specialty Start Date End Date Roxanna Harvey MD [address] [facility] [address] [place] [address] PCP - General Family Medicine 10/05/21
--- OUTSIDE RECORDS SUMMARY | 2024-11-01 08:28 | XMS_ITS | Clinical Summary ---
Author Organization [address] Address [address] [place] [address] Care Team Providers Care Shoder Filler Name Role Phone Roxanna Harvey MD Primary [...] (10/05/2021): Added automatically from request for surgery [id number] Foot fracture, left, open, initial encounter 08/2021 [...] this topic Medical Devices Implanted Type Area Home Theater Installer Device Identifier Shelf Expiration Date Model / Serial / Lot Synthes 2.4mm 18mm Self Tap Stardrive Cortex T8 Screw Bone 201.526 - [id number] Implanted:Qty: 3 on 10/05/2021 by Adrien Yoder MD at [facility] Left: Foot Synthes I 201.768 / / Synthes Lcp Pro-Maxwell 44mm 5 Hole Low Profile Cut To Length Plate Bone 247.375 - [id number] Implanted:Qty: 1 on 10/05/2021 by Adrien Yoder MD at [facility] Left: Foot Synthes I 247.375 / / Synthes 2.4mm 22mm Self Tap Stardrive Cortex T8 Screw Bone 201.772 - [id number] Implanted:Qty: 1 on 10/05/2021 by Adrien Yoder MD at [facility] Left: Foot Synthes I 201.772 / / Synthes 2.4mm 4mm 26mm Self Tap Self Retain Stardrive Low Profile Cortex 201.776 - [id number] Implanted:Qty: 1 on 10/05/2021 by Adrien Yoder MD at [facility] Left: Foot Synthes I 201.776 / / Explanted Type Area Home Theater Installer Device Identifier Shelf Expiration Date Model / Serial / Lot Synthes 2.4mm 4mm 28mm Self Tap Self Retain Stardrive Low Profile Cortex 201.778 - [id number] Explanted:Qty: 1 on 10/05/2021 by Adrien Yoder MD at [facility] Left: Foot Synthes I 201.778 / / Insurance [facility] HMO/PPO Address: [address] [address] HEALTHLINK OPEN ACCESS HEALTHLINK OPEN ACCESS HEALTHLINK PPO POS [facility] HEALTHLINK OPEN ACCESS Advance Directives For more information, please contact: [phone] * Full Code (Latest Code Status on File) Date Activated Date Inactivated Comments 10/06/2021 2:49 AM 10/06/2021 11:27 PM * Full Code Date Activated Date Inactivated Comments 10/06/2021 2:49 AM 10/06/2021 2:49 AM Care Teams Shoder Filler Relationship Specialty Start Date End Date Roxanna Harvey MD [address] [facility] [address] [place] [address] PCP - General Family Medicine 10/05/21
--- OUTSIDE RECORDS SUMMARY | 2024-11-01 08:28 | XMS_ITS | Encounter Summary ---
Author Organization [facility] Healthcare Address [address] [place] [address] Care Team Providers Care Senior Cyber Security Analyst Name Role Phone No, Physician Primary Care Provider [phone] Roxanna Harvey MD Primary Care Provider Encounter Details Date Type Department Care Team (Late st Contact Info) Description 11/15/2019 Telephone [facility]1 [place] [address] Nolvia Johns, [facility] [address] [facility] [address] [place] [address] Social History Tobacco Use Types Packs/Day Years [...] on filedocumented in this encounter Care Teams Senior Cyber Security Analyst Relationship Specialty Start Date End Date No, Physician PCP - General 10/27/19 10/04/21 Roxanna Harvey MD [address] [facility] [address] [place] [address] PCP - General Family Medicine 10/05/21 documented as of this encounter
[2024-11-01 09:11] LABS: Alanine Aminotransferase 27 U/L (6-50); Albumin Level 4.0 g/dL (3.5-5.1); Alkaline Phosphatase 61 U/L (38-126); Anion Gap 6 mmol/L (4-12); Aspartate Amino Transferase 34 U/L (17-59); Bilirubin,Total 0.3 mg/dL (0.2-1.3); Blood Urea Nitrogen 10 mg/dL (9-20); Calcium 9.1 mg/dL (8.4-10.2); Carbon Dioxide 26 mmol/L (22-30); Chloride 107 mmol/L (98-107); Estimated Glomerular Filt Rate > 60; Glucose 116 mg/dL (65-110); Potassium 4.3 mmol/L (3.4-5.0); Sodium 139 mmol/L (137-145); Total Protein 6.8 g/dL (6.3-8.2)
== END 2024-11-01 08:26 | disposition home or self-care (01) ==
PROVIDERS: PCP Family Medicine; Visit Provider Family Medicine
DX: R79.89 Other specified abnormal findings of blood chemistry (principal)
CPT/HCPCS: 36415; 80053